=== PATIENT | male | born 1985 | race Caucasian/White ===

== ENCOUNTER 2017-09-11 21:41 | Emergency (ER) | payer MEDICAID ==
[~2017-09-11] VITALS: Ht 172.7 cm; Wt 95.3 kg
[2017-09-11 21:49] VITALS: BP 136/89
--- NOTE | 2017-09-11 23:19 | NUR ---
TO ER BED 11 FROM ER [facility]IZAB[facility]
--- NOTE | 2017-09-11 23:40 | NUR ---
Patient being evaluated by DR. VERA at bedside.
[2017-09-11] MEDS ORDERED: NACL 0.9% 500 ML IV ONE (23:49)
[2017-09-11] MEDS ORDERED: ONDANSETRON 4 MG/2 ML VIAL IVP ONE (23:50)
[2017-09-11] MEDS ORDERED: KETOROLAC 30 MG/ML VIAL IVP ONE (23:50)
--- NOTE | 2017-09-11 23:55 | NUR ---
32Y/M PT. BIBA TO ED WITH . ANXIETY HYPERVENTILATING CARPOPEDAL SPASM. PT. STATES HAVING SOMETHING STUCK AT LT. SIDE, DONT KNOW WHAT HAPPENED TO ME. DENIES MEDICAL HX. AAO X4, AMBULATORY WITH STEDAY GAIT. RESPIRATIONS ROOM AIR, EVEN AND UNLABORED. ABDOMEN FLAT, NON TENDER, ACTIVE BS X4. VSS, ER MD MADE AWARE OF PT. STATUS.
[2017-09-12 00:02] LABS: HEMOGLOBIN 15.7 g/dL (12.0-18.0); MEAN CORPUSCULAR HEMOGLOBIN 29 pg (27-31); MEAN CORPUSCULAR HGB CONC 33 g/dL (33-37); MEAN CORPUSCULAR VOLUME 89 fL (80-94); PLATELET COUNT (AUTO) 215 K/uL (140-450); RED BLOOD CELL COUNT(AUTO) 5.38 MIL/uL (4.20-6.10); RED CELL DISTRIBUTION WIDTH 12.6 % (11.6-13.7); WHITE BLOOD COUNT (AUTO) 12.1 K/uL (4.8-10.8)
[2017-09-12 00:16] LABS: ANION GAP 11.9 (8-16); CARBON DIOXIDE 28.5 mmol/L (21-32); CREATININE 1.2 mg/dL (0.7-1.3); POTASSIUM 3.4 mmol/L (3.5-5.1)
[2017-09-12 00:17] LABS: LYMPHOCYTES % (MANUAL) 10 % (20-46); MONOCYTES % (MANUAL) 3 % (5-12)
[2017-09-12 00:19] LABS: ALBUMIN 4.1 g/dL (3.4-5.0); TOTAL BILIRUBIN 0.5 mg/dL (0.0-1.0)
--- NOTE | 2017-09-12 00:42 | NUR ---
Patient appears to be resting comfortably in bed. Vital Signs within normal limits. Respirations even and unlabored.
[2017-09-12 01:33] VITALS: BP 131/66
--- NOTE | 2017-09-12 01:34 | NUR ---
Patient discharged with v/s stable. Written and verbal after care instructions given and explained. Patient alert, oriented and verbalized understanding of instructions. Ambulatory with steady gait. All questions addressed prior to discharge. ID band removed. Patient advised to follow up with PMD. Rx of XANAX 0.5 MG, ZOFRAN 4 MG ODT, OMEPRAZOLE 40 MG given. Patient educated on indication of medication including possible reaction and side effects. Opportunity to ask questions provided and answered.
== END 2017-09-12 01:33 | disposition home or self-care (01) ==
LOC: MED 21:41
DX: R10.12 Left upper quadrant pain (principal); F41.9 Anxiety disorder, unspecified; R03.0 Elevated blood-pressure reading, without diagnosis of hypertension
CPT/HCPCS: 36415; 76705; 80053; 83690; 85025; 96361; 96374; 96375; 99285; J1885; J2405; J7030; Q0092